=== PATIENT | male | born 1950 | race Caucasian/White ===

== ENCOUNTER 2017-09-14 08:08 | Inpatient (IN) ==
[2017-09-14] MEDS ORDERED: methylPREDNISolone SOD SUC 125 MG/2 ML VIAL IV STA (09:46)
[2017-09-14] MEDS ORDERED: ALBUTEROL/IPRATROPIUM 3 ML NEB RESP TX STA (09:46)
[2017-09-14] MEDS ORDERED: ONDANSETRON 4 MG/2 ML VIAL IV STA (09:46)
[2017-09-14] MEDS ORDERED: methylPREDNISolone SOD SUC 125 MG/2 ML VIAL ONE (10:15)
[2017-09-14] MEDS ORDERED: ONDANSETRON 4 MG/2 ML VIAL ONE (10:15)
[2017-09-14 10:21] LABS: Basophils # 0.1 10*3/uL (0.0-0.2); Basophils % 0.9 % (0.0-0.8); Eosinophils # 0.1 10*3/uL (0.0-0.87); Eosinophils % 1.4 % (0.00-10.9); Hematocrit 35.3 VOL% (42.0-52.0); Hemoglobin 11.4 GM/DL (14.0-18.0); Immature Granulocytes % 0.6 %; Immature Granulocytes Absolute 0.04 #; Lymphocytes # 1.3 10*3/uL (1.4-4.0); Lymphocytes % 18.4 % (21.2-54.2); Mean Corpuscular HGB Conc 32.3 GM/DL (32-36); Mean Corpuscular Hemoglobin 29 PG (27-34); Mean Corpuscular Volume 88.5 FL (87-102); Mean Platelet Volume 8.1 FL (9.6-12.0); Monocytes # 0.3 10*3/uL (0.11-0.8); Monocytes % 3.7 % (1.7-12.7); Neutrophils # 5.3 10*3/uL (1.4-7.4); Platelet Count 375 T/CUMM (130-400); Red Blood Count 3.99 MC/CUMM (3.8-5.5)
[2017-09-14 10:35] LABS: PT Patient Result 10.2 SECS
[2017-09-14 11:00] LABS: Alanine Aminotransferase 26 U/L (16-61); Albumin 3.8 G/DL (3.4-5.0); Alkaline Phosphatase 176 U/L (45-117); Aspartate Amino Transferase 18 U/L (0-37); Bilirubin,Total < 0.39 MG/DL (0.2-1.0); Blood Urea Nitrogen 10 MG/DL (7-18); Calcium 9.7 MG/DL (8.5-10.1); Glucose 95 MG/DL (74-106); Magnesium 2.3 MG/DL (1.8-2.4); Osmolality,Calculated 266.2 MOS/KG (273-304); Potassium 4.1 MMOL/L (3.5-5.1); Sodium 134 MMOL/L (136-145); Total Protein 9.3 G/DL (6.4-8.3); Troponin I Only < 0.015 NG/ML (0.00-0.045)
[2017-09-14] MEDS ORDERED: PROMETHAZINE 25 MG TABLET PO PRN (12:35)
[2017-09-14] MEDS ORDERED: NICOTINE 21 MG/24 HR PATCH TRANSDERM PRN (12:35)
[2017-09-14] MEDS: CYCLOBENZAPRINE 10 MG TABLET PO SCH ×2 (14:32→21:31)
[2017-09-14] MEDS: MORPHINE ER 15 MG TABLET PO SCH ×2 (14:32→21:30)
[2017-09-14] MEDS ORDERED: PNEUMOCOCCAL VACCINE (13 VALENT) 0.5 ML SYRINGE IM ONE (14:50)
[2017-09-14] MEDS ORDERED: INFLUENZA VIRUS VACCINE 0.5 ML SYRINGE IM ONE (14:50)
[2017-09-14] MEDS: ZALEPLON 5 MG CAPSULE PO PRN ×2 (21:31→23:39)
[2017-09-15 05:02] LABS: Basophils % 0.1 % (0.0-0.8); Eosinophils % 0.1 % (0.00-10.9); Hemoglobin 9.8 GM/DL (14.0-18.0); Immature Granulocytes % 1.1 %; Immature Granulocytes Absolute 0.11 #; Lymphocytes # 1.2 10*3/uL (1.4-4.0); Mean Corpuscular HGB Conc 32.7 GM/DL (32-36); Mean Corpuscular Hemoglobin 28 PG (27-34); Mean Corpuscular Volume 86.2 FL (87-102); Mean Platelet Volume 8.5 FL (9.6-12.0); Monocytes # 0.5 10*3/uL (0.11-0.8); Monocytes % 4.7 % (1.7-12.7); Platelet Count 373 T/CUMM (130-400); Red Blood Count 3.48 MC/CUMM (3.8-5.5); Red Cell Distribution Width 15.1 % (9.3-17.3); White Blood Count 9.8 T/CUMM (4-12)
[2017-09-15 05:22] LABS: Calcium 9.7 MG/DL (8.5-10.1); Osmolality,Calculated 267.4 MOS/KG (273-304); Potassium 4.9 MMOL/L (3.5-5.1)
[2017-09-15] MEDS ORDERED: CARBOplatin 500 MG in SODIUM CHLORIDE 0.9% 250 ML IV ONE (09:04)
[2017-09-15] MEDS ORDERED: DEXAMETHASONE INJ 20 MG in SODIUM CHLORIDE 0.9% 50 ML IV ONE (09:04)
[2017-09-15] MEDS: amLODIPine 10 MG TABLET PO SCH (09:04)
[2017-09-15] MEDS ORDERED: FAMOTIDINE 20 MG/2 ML VIAL IV ONE (09:04)
[2017-09-15] MEDS: CYCLOBENZAPRINE 10 MG TABLET PO SCH ×2 (09:04→20:49)
[2017-09-15] MEDS ORDERED: diphenhydrAMINE 50 MG/1 ML VIAL IV ONE (09:04)
[2017-09-15] MEDS: MORPHINE ER 15 MG TABLET PO SCH (09:06)
[2017-09-15] MEDS ORDERED: GRANISETRON 1 MG/1 ML VIAL IV SCH (09:30)
[2017-09-15] MEDS: MORPHINE ER 30 MG TABLET PO SCH ×2 (10:26→20:49)
[2017-09-16] MEDS: ZALEPLON 5 MG CAPSULE PO PRN (01:31)
[2017-09-16] MEDS: amLODIPine 10 MG TABLET PO SCH (08:46)
[2017-09-16] MEDS: MORPHINE ER 30 MG TABLET PO SCH (08:46)
[2017-09-16] MEDS: CYCLOBENZAPRINE 10 MG TABLET PO SCH (08:47)
[2017-09-16 12:30] VITALS: BP 138/79
== END 2017-09-16 13:45 | disposition home or self-care (01) | DRG 136 ==
LOC: EDUNIT# → EDBD → N.ED 08:08 → N.EDINP 11:38 → N.4E 12:46
PROVIDERS: ADMIT Internal Medicine Geriatric Medicine; ATTEND Internal Medicine Geriatric Medicine

== ENCOUNTER 2017-09-17 06:15 | Inpatient (IN) ==
[2017-09-17] MEDS ORDERED: SODIUM CHLORIDE 0.9% 1,000 ML IV STA (06:32)
[2017-09-17] MEDS ORDERED: LEVOFLOXACIN INJ 750 MG in PREMIX 1 EACH IV STA (06:50)
[2017-09-17] MEDS ORDERED: methylPREDNISolone SOD SUC 125 MG/2 ML VIAL IV STA (06:50)
[2017-09-17] MEDS ORDERED: ALBUTEROL 2.5 MG/3 ML NEB RESP TX SCH (07:00)
[2017-09-17 07:01] LABS: Basophils % 0.2 % (0.0-0.8); Eosinophils % 0.5 % (0.00-10.9); Hematocrit 31.9 VOL% (42.0-52.0); Hemoglobin 10.5 GM/DL (14.0-18.0); Immature Granulocytes % 0.8 %; Immature Granulocytes Absolute 0.07 #; Lymphocytes # 1.3 10*3/uL (1.4-4.0); Mean Corpuscular HGB Conc 32.9 GM/DL (32-36); Mean Corpuscular Hemoglobin 29 PG (27-34); Mean Corpuscular Volume 86.4 FL (87-102); Mean Platelet Volume 8.4 FL (9.6-12.0); Monocytes # 0.3 10*3/uL (0.11-0.8); Monocytes % 3.1 % (1.7-12.7); Neutrophils % 80.4 % (38.7-73.9); Platelet Count 269 T/CUMM (130-400); Red Blood Count 3.69 MC/CUMM (3.8-5.5); Red Cell Distribution Width 15.3 % (9.3-17.3); White Blood Count 8.7 T/CUMM (4-12)
[2017-09-17] MEDS ORDERED: LEVOFLOXACIN INJ 150 ML IV ONE (07:03)
[2017-09-17] MEDS ORDERED: methylPREDNISolone SOD SUC 125 MG/2 ML VIAL ONE (07:03)
[2017-09-17 07:09] LABS: PT Patient Result 10.4 SECS; Partial Thromboplastin Time 27.3 SECS (0-40)
[2017-09-17 07:35] LABS: Alanine Aminotransferase 22 U/L (16-61); Albumin 3.4 G/DL (3.4-5.0); Alkaline Phosphatase 129 U/L (45-117); Aspartate Amino Transferase 16 U/L (0-37); Blood Urea Nitrogen 18 MG/DL (7-18); Calcium 9.1 MG/DL (8.5-10.1); Glucose 94 MG/DL (74-106); Osmolality,Calculated 269.2 MOS/KG (273-304); Sodium 134 MMOL/L (136-145); Total Protein 7.5 G/DL (6.4-8.3); Troponin I Only < 0.015 NG/ML (0.00-0.045)
[2017-09-17 09:18] LABS: Apearance,Urine CLEAR (Clear); Bilirubin,Urine Negative (Negative); Blood, Urine Negative (Negative); Glucose,Urine (UA) Negative (Negative); Ketones,Urine Negative (Negative); Mucus,Urine Occasional /LPF (Occasional); Nitrite,Urine Negative (Negative); Protein,Urine Negative; Urine Color Yellow (Yellow); Urine Specific Gravity 1.011 (1.001-1.035); Urine Urobilinogen < 2.0 EU/DL (0.2-1.0); WBC,Urine <1 /HPF (0-6)
[2017-09-17 09:33] LABS: Barbiturates Screen,Urine Negative (Negative); Benzodiazepines Screen,Urine Negative (Negative); Cannabinoid Screen,Urine Negative (Negative); Opiate Screen,Urine Positive (Negative); Phencyclidine Screen,Urine Negative (Negative)
[2017-09-17] MEDS ORDERED: ACETAMINOPHEN 325 MG TABLET PO PRN (10:21)
[2017-09-17] MEDS ORDERED: ZALEPLON 5 MG CAPSULE PO PRN (10:21)
[2017-09-17] MEDS ORDERED: NICOTINE 21 MG/24 HR PATCH TRANSDERM PRN (10:21)
[2017-09-17] MEDS ORDERED: ONDANSETRON 4 MG/2 ML VIAL IV PRN (10:21)
[2017-09-17] MEDS ORDERED: PROMETHAZINE 25 MG TABLET PO PRN (10:50)
[2017-09-17] MEDS: SODIUM CHLORIDE 0.9% 1,000 ML IV SCH (11:43)
[2017-09-17] MEDS: methylPREDNISolone SOD SUC 40 MG/1 ML VIAL IV SCH ×2 (11:43→22:45)
[2017-09-17] MEDS: MORPHINE ER 30 MG TABLET PO SCH ×2 (11:44→22:45)
[2017-09-17] MEDS: ENOXAPARIN 40 MG/0.4 ML SYRINGE SUBCUT SCH (11:45)
[2017-09-17] MEDS: AZITHROMYCIN INJ 500 MG in SODIUM CHLORIDE 0.9% 250 ML IV SCH (12:28)
[2017-09-17] MEDS: ALBUTEROL/IPRATROPIUM 3 ML NEB RESP TX SCH ×2 (13:29→19:20)
[2017-09-17] MEDS: CYCLOBENZAPRINE 10 MG TABLET PO SCH (20:47)
[2017-09-18] MEDS: ALBUTEROL/IPRATROPIUM 3 ML NEB RESP TX SCH ×4 (01:55→19:19)
[2017-09-18 06:12] LABS: Basophils % 0.1 % (0.0-0.8); Hematocrit 28.5 VOL% (42.0-52.0); Hemoglobin 9.5 GM/DL (14.0-18.0); Immature Granulocytes % 2.1 %; Immature Granulocytes Absolute 0.22 #; Lymphocytes # 0.4 10*3/uL (1.4-4.0); Lymphocytes % 4.1 % (21.2-54.2); Mean Corpuscular HGB Conc 33.3 GM/DL (32-36); Mean Corpuscular Hemoglobin 29 PG (27-34); Mean Corpuscular Volume 85.8 FL (87-102); Mean Platelet Volume 9.4 FL (9.6-12.0); Monocytes # 0.1 10*3/uL (0.11-0.8); Monocytes % 0.6 % (1.7-12.7); Neutrophils # 9.9 10*3/uL (1.4-7.4); Neutrophils % 93.1 % (38.7-73.9); Platelet Count 253 T/CUMM (130-400); Red Blood Count 3.32 MC/CUMM (3.8-5.5); Red Cell Distribution Width 15.3 % (9.3-17.3); White Blood Count 10.6 T/CUMM (4-12)
[2017-09-18 06:51] LABS: Bilirubin,Total 0.9 MG/DL (0.2-1.0); Giant Platelets Few; Hypochromasia 1+; Lymphocytes 2 % (20-55); Osmolality,Calculated 275.8 MOS/KG (273-304); Ovalocytes Slight; Platelet Estimate Adequate; Segmented Neutrophils 98 % (50-85); Total Cells Counted 100; Total Protein 7.2 G/DL (6.4-8.3)
[2017-09-18] MEDS: amLODIPine 10 MG TABLET PO SCH (09:41)
[2017-09-18] MEDS: ENOXAPARIN 40 MG/0.4 ML SYRINGE SUBCUT SCH (09:41)
[2017-09-18] MEDS: CYCLOBENZAPRINE 10 MG TABLET PO SCH ×2 (09:41→22:45)
[2017-09-18] MEDS: methylPREDNISolone SOD SUC 40 MG/1 ML VIAL IV SCH ×2 (09:42→22:46)
[2017-09-18] MEDS: MORPHINE ER 30 MG TABLET PO SCH ×2 (09:50→22:44)
[2017-09-18] MEDS: AZITHROMYCIN INJ 500 MG in SODIUM CHLORIDE 0.9% 250 ML IV SCH (12:06)
[2017-09-18] MEDS: SODIUM CHLORIDE 0.9% 1,000 ML IV SCH (12:06)
[2017-09-18] MEDS ORDERED: MAGNESIUM CITRATE 300 ML BOTTLE PO ONE (14:07)
[2017-09-18] MEDS: POLYETHYLENE GLYCOL POWDER 17 GM PACK PO SCH ×2 (15:10→22:46)
[2017-09-19] MEDS: ALBUTEROL/IPRATROPIUM 3 ML NEB RESP TX SCH ×4 (00:36→19:00)
[2017-09-19] MEDS: CYCLOBENZAPRINE 10 MG TABLET PO SCH ×2 (08:57→20:44)
[2017-09-19] MEDS: POLYETHYLENE GLYCOL POWDER 17 GM PACK PO SCH ×2 (08:57→20:44)
[2017-09-19] MEDS: amLODIPine 10 MG TABLET PO SCH (08:57)
[2017-09-19] MEDS: ENOXAPARIN 40 MG/0.4 ML SYRINGE SUBCUT SCH (10:17)
[2017-09-19] MEDS: MORPHINE ER 30 MG TABLET PO SCH ×2 (10:18→23:38)
[2017-09-19] MEDS: methylPREDNISolone SOD SUC 40 MG/1 ML VIAL IV SCH (10:18)
[2017-09-19] MEDS: AZITHROMYCIN INJ 500 MG in SODIUM CHLORIDE 0.9% 250 ML IV SCH (12:19)
[2017-09-19] MEDS: SODIUM CHLORIDE 0.9% 1,000 ML IV SCH (12:20)
[2017-09-19] MEDS ORDERED: MAGNESIUM CITRATE 300 ML BOTTLE PO PRN (18:01)
[2017-09-19] MEDS: CEFUROXIME 500 MG TABLET PO SCH (20:43)
[2017-09-20] MEDS: ALBUTEROL/IPRATROPIUM 3 ML NEB RESP TX SCH ×3 (00:08→13:41)
[2017-09-20] MEDS: CYCLOBENZAPRINE 10 MG TABLET PO SCH (08:59)
[2017-09-20] MEDS: amLODIPine 10 MG TABLET PO SCH (08:59)
[2017-09-20] MEDS: CEFUROXIME 500 MG TABLET PO SCH (08:59)
[2017-09-20] MEDS: POLYETHYLENE GLYCOL POWDER 17 GM PACK PO SCH (09:00)
[2017-09-20] MEDS ORDERED: predniSONE 20 MG TABLET PO SCH (09:00)
[2017-09-20] MEDS: MORPHINE ER 30 MG TABLET PO SCH ×2 (09:00→10:46)
[2017-09-20] MEDS: ENOXAPARIN 40 MG/0.4 ML SYRINGE SUBCUT SCH ×2 (09:00→10:46)
[2017-09-20 10:55] VITALS: BP 104/72
== END 2017-09-20 17:15 | disposition home or self-care (01) | DRG 140 ==
LOC: EDUNIT# → EDBD → N.ED 06:15 → N.EDINP 09:47 → SUATTDRO 09:47 → N.4E 10:12
PROVIDERS: ADMIT Internal Medicine Geriatric Medicine; ATTEND Internal Medicine

== ENCOUNTER 2018-04-16 19:58 | Inpatient (IN) ==
[2018-04-16] MEDS ORDERED: HYDROmorphone 2 MG/1 ML VIAL IV STA ×2 (20:31→22:04)
[2018-04-16] MEDS ORDERED: ONDANSETRON 4 MG/2 ML VIAL IV STA ×2 (20:32→23:17)
[2018-04-16 20:50] LABS: Basophils % 0.3 % (0.0-0.8); Eosinophils # 0.2 10*3/uL (0.0-0.87); Eosinophils % 1.5 % (0.00-10.9); Hematocrit 24.6 VOL% (42.0-52.0); Hemoglobin 7.6 GM/DL (14.0-18.0); Immature Granulocytes % 0.5 %; Immature Granulocytes Absolute 0.05 #; Lymphocytes # 1.5 10*3/uL (1.4-4.0); Lymphocytes % 15.3 % (21.2-54.2); Mean Corpuscular HGB Conc 30.9 GM/DL (32-36); Mean Corpuscular Hemoglobin 31 PG (27-34); Mean Corpuscular Volume 99.6 FL (87-102); Mean Platelet Volume 8.9 FL (9.6-12.0); Monocytes # 0.6 10*3/uL (0.11-0.8); Monocytes % 6.2 % (1.7-12.7); Neutrophils # 7.5 10*3/uL (1.4-7.4); Neutrophils % 76.2 % (38.7-73.9); Platelet Count 302 T/CUMM (130-400); Red Blood Count 2.47 MC/CUMM (3.8-5.5); Red Cell Distribution Width 17.6 % (9.3-17.3); White Blood Count 9.9 T/CUMM (4-12)
[2018-04-16 21:21] LABS: Alanine Aminotransferase 9 U/L (16-61); Albumin 2.6 G/DL (3.4-5.0); Alkaline Phosphatase 167 U/L (45-117); Aspartate Amino Transferase 11 U/L (0-37); Bilirubin,Total < 0.39 MG/DL (0.2-1.0); Blood Urea Nitrogen 11 MG/DL (7-18); Calcium 7.8 MG/DL (8.5-10.1); Glucose 87 MG/DL (74-106); Osmolality,Calculated 265.2 MOS/KG (273-304); Potassium 3.3 MMOL/L (3.5-5.1); Sodium 134 MMOL/L (136-145); Total Protein 6.9 G/DL (6.4-8.3)
[2018-04-16] MEDS ORDERED: PROMETHAZINE 25 MG/1 ML VIAL IM STA (23:25)
[2018-04-16] MEDS ORDERED: METOCLOPRAMIDE 10 MG/2 ML VIAL IV STA (23:41)
[2018-04-17] MEDS ORDERED: ALUMINUM/MAGNES/SIMETH MAX STR 30 ML UDCUP PO PRN (00:27)
[2018-04-17] MEDS ORDERED: chlorproMAZINE 25 MG TABLET PO PRN (00:27)
[2018-04-17] MEDS ORDERED: ALPRAZolam 0.25 MG TABLET PO PRN (00:27)
[2018-04-17] MEDS ORDERED: LACTULOSE 20 GM/30 ML UDCUP PO PRN (00:27)
[2018-04-17] MEDS ORDERED: chlorproMAZINE INJ 25 MG in SODIUM CHLORIDE 0.9% 100 ML IV PRN (00:27)
[2018-04-17] MEDS ORDERED: guaiFENesin 200 MG/10 ML UDCUP PO PRN (00:27)
[2018-04-17] MEDS ORDERED: diphenhydrAMINE CAP 25 MG CAPSULE PO PRN (00:27)
[2018-04-17] MEDS ORDERED: traMADol 50 MG TABLET PO PRN (00:27)
[2018-04-17] MEDS ORDERED: PROMETHAZINE INJ 25 MG in SODIUM CHLORIDE 0.9% 50 ML IV PRN (00:27)
[2018-04-17] MEDS ORDERED: MAGNESIUM HYDROXIDE SUSP 30 ML UDCUP PO PRN (00:27)
[2018-04-17] MEDS ORDERED: LOPERAMIDE 2 MG CAPSULE PO PRN ×2 (00:27)
[2018-04-17] MEDS ORDERED: ACETAMINOPHEN 325 MG TABLET PO PRN (00:27)
[2018-04-17] MEDS ORDERED: ONDANSETRON 4 MG/2 ML VIAL IV PRN (00:27)
[2018-04-17] MEDS ORDERED: MYLANTA/LIDO VISC 2:1 300 ML BOTTLE SWISH/SPIT PRN (00:27)
[2018-04-17] MEDS ORDERED: TEMAZEPAM 7.5 MG CAPSULE PO PRN (00:27)
[2018-04-17] MEDS ORDERED: BENZTROPINE 2 MG/2 ML AMP IV PRN (00:27)
[2018-04-17] MEDS: DEXTROSE 5% NACL 0.9% 1,000 ML IV SCH ×2 (02:46→22:21)
[2018-04-17] MEDS ORDERED: MORPHINE 4 MG/1 ML VIAL IV ONE (06:00)
[2018-04-17] MEDS: PANTOPRAZOLE 40 MG VIAL IV SCH (08:00)
[2018-04-17] MEDS ORDERED: ALBUTEROL 2.5 MG/3 ML NEB RESP TX PRN (09:04)
[2018-04-17] MEDS ORDERED: MORPHINE ER 30 MG TABLET PO PRN (09:04)
[2018-04-17] MEDS ORDERED: AMITRIPTYLINE 25 MG TABLET PO PRN (09:04)
[2018-04-17] MEDS ORDERED: hydrALAZINE 20 MG/1 ML VIAL IV PRN (09:07)
[2018-04-17] MEDS ORDERED: MORPHINE ER 15 MG TABLET PO SCH (09:30)
[2018-04-17] MEDS: ALBUTEROL/IPRATROPIUM 3 ML NEB RESP TX SCH ×3 (10:55→20:11)
[2018-04-17] MEDS: CYCLOBENZAPRINE 10 MG TABLET PO SCH ×2 (11:22→20:54)
[2018-04-17] MEDS ORDERED: HYDROmorphone 2 MG TABLET PO ONE (11:59)
[2018-04-17] MEDS: MORPHINE 10 MG/1 ML VIAL IV PRN (15:05)
[2018-04-17] MEDS ORDERED: NALOXONE 0.4 MG/ML VIAL IV PRN (15:06)
[2018-04-17] MEDS: MORPHINE ER 30 MG TABLET PO SCH (18:56)
[2018-04-17] MEDS: GABAPENTIN 300 MG CAPSULE PO SCH (20:54)
[2018-04-18] MEDS: MORPHINE 10 MG/1 ML VIAL IV PRN ×2 (01:51→07:42)
[2018-04-18 04:32] LABS: Basophils % 0.1 % (0.0-0.8); Eosinophils # 0.2 10*3/uL (0.0-0.87); Hematocrit 26.9 VOL% (42.0-52.0); Immature Granulocytes % 0.6 %; Immature Granulocytes Absolute 0.06 #; Lymphocytes % 10.1 % (21.2-54.2); Mean Corpuscular HGB Conc 29.7 GM/DL (32-36); Mean Corpuscular Hemoglobin 31 PG (27-34); Mean Corpuscular Volume 103.9 FL (87-102); Mean Platelet Volume 9.2 FL (9.6-12.0); Monocytes # 0.6 10*3/uL (0.11-0.8); Monocytes % 6.3 % (1.7-12.7); Neutrophils # 7.6 10*3/uL (1.4-7.4); Neutrophils % 80.9 % (38.7-73.9); Platelet Count 258 T/CUMM (130-400); Red Blood Count 2.59 MC/CUMM (3.8-5.5); White Blood Count 9.5 T/CUMM (4-12)
[2018-04-18] MEDS: DEXTROSE 5% NACL 0.9% 1,000 ML IV SCH (04:43)
[2018-04-18 05:13] LABS: Calcium 7.9 MG/DL (8.5-10.1); Osmolality,Calculated 269.8 MOS/KG (273-304); Potassium 3.8 MMOL/L (3.5-5.1)
[2018-04-18] MEDS: MORPHINE ER 30 MG TABLET PO SCH ×2 (06:42→18:23)
[2018-04-18] MEDS: ALBUTEROL/IPRATROPIUM 3 ML NEB RESP TX SCH ×4 (07:25→19:17)
[2018-04-18] MEDS ORDERED: SODIUM CHLORIDE 0.9% 1,000 ML IV PRN (08:05)
[2018-04-18] MEDS: PANTOPRAZOLE 40 MG VIAL IV SCH (08:39)
[2018-04-18] MEDS: CYCLOBENZAPRINE 10 MG TABLET PO SCH ×2 (08:39→22:06)
[2018-04-18] MEDS: GABAPENTIN 300 MG CAPSULE PO SCH ×3 (10:02→22:06)
[2018-04-18] MEDS ORDERED: FUROSEMIDE 20 MG/2 ML VIAL IV ONE (13:30)
[2018-04-19] MEDS: ALBUTEROL/IPRATROPIUM 3 ML NEB RESP TX SCH ×4 (07:08→19:39)
[2018-04-19] MEDS: GABAPENTIN 300 MG CAPSULE PO SCH ×3 (08:21→20:17)
[2018-04-19] MEDS: MORPHINE ER 30 MG TABLET PO SCH ×2 (08:21→20:17)
[2018-04-19] MEDS: PANTOPRAZOLE 40 MG VIAL IV SCH (08:22)
[2018-04-19] MEDS: CYCLOBENZAPRINE 10 MG TABLET PO SCH ×2 (08:22→20:17)
[2018-04-19] MEDS: DEXTROSE 5% NACL 0.9% 1,000 ML IV SCH ×2 (08:24→22:09)
[2018-04-19 12:08] LABS: Basophils % 0.3 % (0.0-0.8); Eosinophils # 0.1 10*3/uL (0.0-0.87); Eosinophils % 0.6 % (0.00-10.9); Hematocrit 29.1 VOL% (42.0-52.0); Hemoglobin 9.1 GM/DL (14.0-18.0); Immature Granulocytes % 1.1 %; Immature Granulocytes Absolute 0.09 #; Lymphocytes # 0.9 10*3/uL (1.4-4.0); Lymphocytes % 11.3 % (21.2-54.2); Mean Corpuscular HGB Conc 31.3 GM/DL (32-36); Mean Corpuscular Hemoglobin 31 PG (27-34); Mean Platelet Volume 8.5 FL (9.6-12.0); Monocytes # 0.5 10*3/uL (0.11-0.8); Monocytes % 6.5 % (1.7-12.7); Neutrophils # 6.3 10*3/uL (1.4-7.4); Neutrophils % 80.2 % (38.7-73.9); Platelet Count 199 T/CUMM (130-400); Red Blood Count 2.97 MC/CUMM (3.8-5.5); Red Cell Distribution Width 18.9 % (9.3-17.3); White Blood Count 7.9 T/CUMM (4-12)
[2018-04-19 12:38] LABS: Osmolality,Calculated 261.5 MOS/KG (273-304); Potassium 3.1 MMOL/L (3.5-5.1)
[2018-04-19 17:10] LABS: Apearance,Urine CLEAR (Clear); Bilirubin,Urine Negative (Negative); Blood, Urine Negative (Negative); Glucose,Urine (UA) Negative (Negative); Ketones,Urine Negative (Negative); Mucus,Urine Occasional /LPF (Occasional); Nitrite,Urine Negative (Negative); Protein,Urine Negative; RBC,Urine <1 /HPF (0-4); Urine Color Yellow (Yellow); Urine Specific Gravity 1.008 (1.001-1.035); Urine Urobilinogen < 2.0 EU/DL (0.2-1.0); WBC,Urine 1 /HPF (0-6)
[2018-04-20] MEDS: DEXTROSE 5% NACL 0.9% 1,000 ML IV SCH (00:16)
[2018-04-20] MEDS: MORPHINE 10 MG/1 ML VIAL IV PRN (01:47)
[2018-04-20 04:58] LABS: Basophils % 0.1 % (0.0-0.8); Eosinophils # 0.1 10*3/uL (0.0-0.87); Eosinophils % 1.1 % (0.00-10.9); Hematocrit 30.7 VOL% (42.0-52.0); Hemoglobin 9.7 GM/DL (14.0-18.0); Immature Granulocytes % 0.7 %; Immature Granulocytes Absolute 0.06 #; Lymphocytes # 0.6 10*3/uL (1.4-4.0); Lymphocytes % 7.7 % (21.2-54.2); Mean Corpuscular HGB Conc 31.6 GM/DL (32-36); Mean Corpuscular Hemoglobin 31 PG (27-34); Mean Corpuscular Volume 98.4 FL (87-102); Mean Platelet Volume 9.4 FL (9.6-12.0); Monocytes # 0.4 10*3/uL (0.11-0.8); Monocytes % 5.4 % (1.7-12.7); Neutrophils # 6.8 10*3/uL (1.4-7.4); Platelet Count 220 T/CUMM (130-400); Red Blood Count 3.12 MC/CUMM (3.8-5.5); Red Cell Distribution Width 18.6 % (9.3-17.3)
[2018-04-20 05:26] LABS: Albumin 2.3 G/DL (3.4-5.0); Bilirubin,Total 0.7 MG/DL (0.2-1.0); Calcium 8.4 MG/DL (8.5-10.1); Osmolality,Calculated 265.2 MOS/KG (273-304); Potassium 2.9 MMOL/L (3.5-5.1); Total Protein 6.8 G/DL (6.4-8.3)
[2018-04-20] MEDS: POTASSIUM CHLORIDE RIDER 10 MEQ in PREMIX 1 EACH IV PRN ×2 (06:20→08:51)
[2018-04-20] MEDS: ALBUTEROL/IPRATROPIUM 3 ML NEB RESP TX SCH ×3 (07:30→14:00)
[2018-04-20] MEDS ORDERED: MORPHINE IR 15 MG TABLET PO PRN (08:34)
[2018-04-20] MEDS: MORPHINE ER 30 MG TABLET PO SCH (08:49)
[2018-04-20] MEDS: GABAPENTIN 300 MG CAPSULE PO SCH ×2 (08:50→14:02)
[2018-04-20] MEDS: CYCLOBENZAPRINE 10 MG TABLET PO SCH (08:51)
[2018-04-20] MEDS ORDERED: POTASSIUM CHLORIDE 20 MEQ TABLET PO ONE (08:54)
[2018-04-20] MEDS: PANTOPRAZOLE 40 MG VIAL IV SCH (08:57)
[2018-04-20] MEDS ORDERED: clonazePAM 0.5 MG TABLET PO SCH (09:00)
[2018-04-20 12:07] VITALS: BP 131/92
== END 2018-04-20 15:10 | disposition hospice, home (50) | DRG 861 ==
LOC: N.EDINP 19:58 → N.ED 19:58 → N.4E 04-17 01:58
PROVIDERS: ADMIT Family Medicine; ATTEND Family Medicine

== ENCOUNTER 2018-04-22 12:34 | Inpatient (IN) ==
[2018-04-22] MEDS ORDERED: SODIUM CHLORIDE 0.9% 1,000 ML IV STA (12:58)
[2018-04-22 13:15] LABS: Basophils % 0.2 % (0.0-0.8); Eosinophils # 0.1 10*3/uL (0.0-0.87); Eosinophils % 0.5 % (0.00-10.9); Hematocrit 33.9 VOL% (42.0-52.0); Hemoglobin 10.8 GM/DL (14.0-18.0); Immature Granulocytes % 1.3 %; Immature Granulocytes Absolute 0.14 #; Lymphocytes # 0.8 10*3/uL (1.4-4.0); Lymphocytes % 7.2 % (21.2-54.2); Mean Corpuscular HGB Conc 31.9 GM/DL (32-36); Mean Corpuscular Hemoglobin 31 PG (27-34); Mean Platelet Volume 9.4 FL (9.6-12.0); Monocytes # 0.5 10*3/uL (0.11-0.8); Monocytes % 4.5 % (1.7-12.7); Neutrophils # 9.6 10*3/uL (1.4-7.4); Neutrophils % 86.3 % (38.7-73.9); Platelet Count 223 T/CUMM (130-400); Red Blood Count 3.46 MC/CUMM (3.8-5.5); Red Cell Distribution Width 17.2 % (9.3-17.3); White Blood Count 11.1 T/CUMM (4-12)
[2018-04-22 13:51] LABS: Lactic Acid 1.8 MMOL/L (0.4-2.0)
[2018-04-22 13:56] LABS: Albumin 2.3 G/DL (3.4-5.0); Bilirubin,Direct 0.32 MG/DL (0.0-0.20); Bilirubin,Indirect 0.4 MG/DL (0.0-1.0); Bilirubin,Total 0.7 MG/DL (0.2-1.0); Calcium 8.7 MG/DL (8.5-10.1); Osmolality,Calculated 264.9 MOS/KG (273-304); Potassium 5.1 MMOL/L (3.5-5.1); Total Protein 6.3 G/DL (6.4-8.3)
[2018-04-22 14:26] LABS: INR 1.3; PT Patient Result 13.6 SECS
[2018-04-22] MEDS ORDERED: MORPHINE 4 MG/1 ML VIAL IV STA (16:15)
[2018-04-22] MEDS: DEXTROSE 5% IV ONE ×2 (16:28→19:25)
[2018-04-22] MEDS: ACETYLCYSTEINE IV ONE ×2 (16:28→19:25)
[2018-04-22 16:41] LABS: ABG Base Excess -0.5 MMOL/L (-2.5-2.5); ABG Oxygen Saturation 94.9 % (95-100); ABG PCO2 46.7 MM HG (35-48); ABG PH 7.345 (7.35-7.45); ABG PO2 84.9 MM HG (80-95); ABG TCO2 23.4 MMOL/L (23-27)
[2018-04-22] MEDS ORDERED: ALBUTEROL 2.5 MG/3 ML NEB RESP TX PRN (16:41)
[2018-04-22] MEDS ORDERED: ONDANSETRON 4 MG/2 ML VIAL IV PRN (16:41)
[2018-04-22] MEDS ORDERED: MORPHINE 4 MG/1 ML VIAL IV PRN (16:41)
[2018-04-22] MEDS ORDERED: SODIUM CHLORIDE 0.9% 1,000 ML IV SCH (17:00)
[2018-04-22] MEDS ORDERED: ACETYLCYSTEINE IV ONE ×4 (17:07→21:07)
[2018-04-22] MEDS ORDERED: DEXTROSE 5% IV ONE ×4 (17:07→21:07)
[2018-04-22 17:13] LABS: Apearance,Urine CLEAR (Clear); Bilirubin,Urine Negative (Negative); Blood, Urine Small mg/dL (Negative); Glucose,Urine (UA) Negative (Negative); Hyaline Casts,Urine 6 /LPF (0-3); Ketones,Urine 5 mg/dL (Negative); Mucus,Urine Occasional /LPF (Occasional); Nitrite,Urine Negative (Negative); Protein,Urine 30 MG/DL; RBC,Urine <1 /HPF (0-4); Urine Color Yellow (Yellow); Urine Specific Gravity 1.023 (1.001-1.035); WBC,Urine 2 /HPF (0-6)
[2018-04-22] MEDS: MORPHINE 4 MG/1 ML VIAL IV PRN (19:10)
[2018-04-22 20:11] LABS: Hepatitis A Ab IgM Quant 0.17 Index; Hepatitis A Ab IgM Result Negative (Negative); Hepatitis B Core IgM Quant 0.27 Index; Hepatitis B Core IgM Result Negative (Negative); Hepatitis B Surface Ag Quant < 0.10 Index; Hepatitis B Surface Ag Result Negative (Negative); Hepatitis C Virus Ab Quant 0.18 Index; Hepatitis C Virus Ab Result Negative (Negative)
[2018-04-22] MEDS ORDERED: guaiFENesin 200 MG/10 ML UDCUP PO PRN (20:56)
[2018-04-22] MEDS ORDERED: ONDANSETRON 4 MG TABLET PO PRN (20:56)
[2018-04-22] MEDS ORDERED: MORPHINE IR 15 MG TABLET PO PRN (20:56)
[2018-04-22] MEDS ORDERED: ALPRAZolam 0.5 MG TABLET PO PRN (20:56)
[2018-04-22] MEDS ORDERED: AMITRIPTYLINE 25 MG TABLET PO PRN (20:56)
[2018-04-22] MEDS ORDERED: LACTULOSE 20 GM/30 ML UDCUP PO PRN (20:56)
[2018-04-22] MEDS ORDERED: ALUMINUM/MAGNES/SIMETH MAX STR 30 ML UDCUP PO PRN (20:56)
[2018-04-22] MEDS: GABAPENTIN 300 MG CAPSULE PO SCH (21:53)
[2018-04-22] MEDS: DOCUSATE SODIUM 100 MG CAPSULE PO SCH (21:53)
[2018-04-22] MEDS: CYCLOBENZAPRINE 10 MG TABLET PO SCH (21:53)
[2018-04-22] MEDS: SODIUM CHLORIDE 0.9% 1,000 ML IV SCH (23:48)
[2018-04-23] MEDS: MORPHINE 4 MG/1 ML VIAL IV PRN (00:17)
[2018-04-23] MEDS: MORPHINE ER 30 MG TABLET PO PRN ×2 (05:24→21:06)
[2018-04-23 06:36] LABS: Basophils % 0.1 % (0.0-0.8); Eosinophils # 0.2 10*3/uL (0.0-0.87); Eosinophils % 1.7 % (0.00-10.9); Hematocrit 32.5 VOL% (42.0-52.0); Hemoglobin 10.3 GM/DL (14.0-18.0); Immature Granulocytes % 0.9 %; Lymphocytes # 0.8 10*3/uL (1.4-4.0); Lymphocytes % 7.1 % (21.2-54.2); Mean Corpuscular HGB Conc 31.7 GM/DL (32-36); Mean Corpuscular Hemoglobin 31 PG (27-34); Mean Corpuscular Volume 97.3 FL (87-102); Mean Platelet Volume 9.9 FL (9.6-12.0); Monocytes # 0.7 10*3/uL (0.11-0.8); Monocytes % 6.2 % (1.7-12.7); Neutrophils # 9.5 10*3/uL (1.4-7.4); Platelet Count 190 T/CUMM (130-400); Red Blood Count 3.34 MC/CUMM (3.8-5.5); White Blood Count 11.3 T/CUMM (4-12)
[2018-04-23 06:55] LABS: Bilirubin,Total 0.6 MG/DL (0.2-1.0); Calcium 8.6 MG/DL (8.5-10.1); Osmolality,Calculated 268.4 MOS/KG (273-304); Potassium 4.1 MMOL/L (3.5-5.1)
[2018-04-23] MEDS: CYCLOBENZAPRINE 10 MG TABLET PO SCH ×2 (10:00→20:54)
[2018-04-23] MEDS: GABAPENTIN 300 MG CAPSULE PO SCH ×3 (10:00→20:54)
[2018-04-23] MEDS: DOCUSATE SODIUM 100 MG CAPSULE PO SCH ×2 (10:00→20:54)
[2018-04-23] MEDS: POTASSIUM CHLORIDE 20 MEQ TABLET PO SCH (10:00)
[2018-04-23] MEDS ORDERED: METOPROLOL TARTRATE 5 MG/5 ML VIAL IV ONE ×2 (19:07→19:09)
[2018-04-23] MEDS: SODIUM CHLORIDE 0.9% 1,000 ML IV SCH (19:14)
[2018-04-23] MEDS: METOPROLOL TARTRATE 25 MG TABLET PO SCH (20:53)
[2018-04-24 06:19] LABS: Basophils % 0.3 % (0.0-0.8); Eosinophils # 0.1 10*3/uL (0.0-0.87); Eosinophils % 1.2 % (0.00-10.9); Hematocrit 29.2 VOL% (42.0-52.0); Hemoglobin 9.1 GM/DL (14.0-18.0); Immature Granulocytes % 1.1 %; Lymphocytes # 0.6 10*3/uL (1.4-4.0); Lymphocytes % 6.7 % (21.2-54.2); Mean Corpuscular HGB Conc 31.2 GM/DL (32-36); Mean Corpuscular Hemoglobin 31 PG (27-34); Mean Corpuscular Volume 99.7 FL (87-102); Mean Platelet Volume 10.1 FL (9.6-12.0); Monocytes # 0.5 10*3/uL (0.11-0.8); Neutrophils # 7.7 10*3/uL (1.4-7.4); Neutrophils % 85.7 % (38.7-73.9); Platelet Count 151 T/CUMM (130-400); Red Blood Count 2.93 MC/CUMM (3.8-5.5); Red Cell Distribution Width 16.8 % (9.3-17.3); White Blood Count 8.9 T/CUMM (4-12)
[2018-04-24 06:51] LABS: Bilirubin,Total 0.8 MG/DL (0.2-1.0); Calcium 8.6 MG/DL (8.5-10.1); Potassium 4.5 MMOL/L (3.5-5.1); Total Protein 5.1 G/DL (6.4-8.3)
[2018-04-24] MEDS: DOCUSATE SODIUM 100 MG CAPSULE PO SCH ×2 (09:10→20:09)
[2018-04-24] MEDS: GABAPENTIN 300 MG CAPSULE PO SCH ×3 (09:10→20:09)
[2018-04-24] MEDS: METOPROLOL TARTRATE 25 MG TABLET PO SCH ×2 (09:10→20:09)
[2018-04-24] MEDS: POTASSIUM CHLORIDE 20 MEQ TABLET PO SCH (09:10)
[2018-04-24] MEDS: CYCLOBENZAPRINE 10 MG TABLET PO SCH ×2 (09:10→20:09)
[2018-04-24] MEDS: MORPHINE 4 MG/1 ML VIAL IV PRN ×2 (09:10→18:59)
[2018-04-24] MEDS ORDERED: ALBUTEROL/IPRATROPIUM 3 ML NEB RESP TX PRN (13:03)
[2018-04-24] MEDS: SODIUM CHLORIDE 0.9% 1,000 ML IV SCH (15:45)
[2018-04-25 05:31] LABS: Basophils % 0.4 % (0.0-0.8); Eosinophils # 0.1 10*3/uL (0.0-0.87); Eosinophils % 0.7 % (0.00-10.9); Hematocrit 28.9 VOL% (42.0-52.0); Hemoglobin 8.9 GM/DL (14.0-18.0); Immature Granulocytes % 1.5 %; Immature Granulocytes Absolute 0.14 #; Lymphocytes # 0.7 10*3/uL (1.4-4.0); Lymphocytes % 7.4 % (21.2-54.2); Mean Corpuscular HGB Conc 30.8 GM/DL (32-36); Mean Corpuscular Hemoglobin 31 PG (27-34); Mean Corpuscular Volume 100.3 FL (87-102); Monocytes # 0.5 10*3/uL (0.11-0.8); Monocytes % 5.4 % (1.7-12.7); Neutrophils # 8.1 10*3/uL (1.4-7.4); Neutrophils % 84.6 % (38.7-73.9); Platelet Count 161 T/CUMM (130-400); Red Blood Count 2.88 MC/CUMM (3.8-5.5); Red Cell Distribution Width 16.7 % (9.3-17.3); White Blood Count 9.5 T/CUMM (4-12)
[2018-04-25 06:03] LABS: Bilirubin,Direct 0.32 MG/DL (0.0-0.20); Bilirubin,Indirect 0.5 MG/DL (0.0-1.0); Bilirubin,Total 0.8 MG/DL (0.2-1.0); Osmolality,Calculated 265.4 MOS/KG (273-304); Potassium 4.7 MMOL/L (3.5-5.1); Total Protein 6.2 G/DL (6.4-8.3)
[2018-04-25 06:18] LABS: Bacteria,Urine Few /HPF (Few); Granular Casts,Urine 5 /LPF (0-1); Hyaline Casts,Urine 14 /LPF (0-3); Mucus,Urine Many /LPF (Occasional); RBC,Urine 1 /HPF (0-4); WBC,Urine 2 /HPF (0-6)
[2018-04-25 06:20] LABS: Apearance,Urine Slightly Hazy (Clear); Bilirubin,Urine Negative (Negative); Blood, Urine Negative (Negative); Glucose,Urine (UA) Negative (Negative); Ketones,Urine 20 mg/dL (Negative); Nitrite,Urine Negative (Negative); Protein,Urine 30 MG/DL; Urine Color Yellow (Yellow); Urine Specific Gravity 1.019 (1.001-1.035)
[2018-04-25] MEDS: POTASSIUM CHLORIDE 20 MEQ TABLET PO SCH (09:24)
[2018-04-25] MEDS: DOCUSATE SODIUM 100 MG CAPSULE PO SCH (09:24)
[2018-04-25] MEDS: CYCLOBENZAPRINE 10 MG TABLET PO SCH (09:24)
[2018-04-25] MEDS: GABAPENTIN 300 MG CAPSULE PO SCH ×2 (09:25→16:10)
[2018-04-25] MEDS: METOPROLOL TARTRATE 25 MG TABLET PO SCH (09:25)
[2018-04-25] MEDS: SODIUM CHLORIDE 0.9% 1,000 ML IV SCH (14:19)
[2018-04-25] MEDS: MORPHINE 4 MG/1 ML VIAL IV PRN ×2 (16:06→19:28)
[2018-04-25 17:53] VITALS: BP 112/73
== END 2018-04-25 19:38 | disposition hospice, home (50) | DRG 861 ==
LOC: EDBD → EDUNIT# → N.ED 12:34 → N.EDINP 16:39 → N.ICU 17:43 → N.4E 04-24 18:54
PROVIDERS: ADMIT Family Medicine; ATTEND Family Medicine